=== PATIENT | female | born 1995 | race Caucasian/White ===

== ENCOUNTER 2017-09-05 12:27 | Emergency (ER) | payer BC ==
[~2017-09-05] VITALS: Ht 157.5 cm; Wt 97.5 kg
[2017-09-05] MEDS ORDERED: ZOLOFT25 MG PO (12:38)
[2017-09-05] MEDS ORDERED: CYCLOBENZAPRINE10 MG PO (12:38)
== END 2017-09-05 12:45 | disposition home or self-care (01) ==
LOC: ED 12:27
DX: Z00.8 Encounter for other general examination (principal)

== ENCOUNTER 2017-09-22 20:20 | Emergency (ER) | payer BC ==
[~2017-09-22] VITALS: Ht 157.5 cm; Wt 90.7 kg
[~2017-09-22 20:20] MED LIST: CYCLOBENZAPRINE10 MG PO; ZOLOFT25 MG PO
[2017-09-22] MEDS ORDERED: PROVENTIL HFA6.7 GM INH (20:59)
[2017-09-22] MEDS ORDERED: ZITHROMAX250 MG PO (20:59)
== END 2017-09-22 21:08 | disposition home or self-care (01) ==
LOC: ED 20:20
DX: J20.9 Acute bronchitis, unspecified (principal); F32.9 Major depressive disorder, single episode, unspecified; Z87.891 Personal history of nicotine dependence; Z88.8 Allergy status to other drugs, medicaments and biological substances; Z79.899 Other long term (current) drug therapy
CPT/HCPCS: 99283

== ENCOUNTER 2019-02-08 13:05 | Emergency (ER) | payer OTHER ==
[~2019-02-08] VITALS: Ht 157.5 cm; Wt 99.8 kg
[~2019-02-08 13:05] MED LIST changes: +IBUPROFEN600 MG PO; +ONDANSETRON ODT8 MG PO; +PROVENTIL HFA6.7 GM INH; +ZITHROMAX250 MG PO
[2019-02-08] MEDS ORDERED: CYCLOBENZAPRINE10 MG PO (13:16)
== END 2019-02-08 14:22 | disposition home or self-care (01) ==
LOC: ED 13:05
DX: S93.601A Unspecified sprain of right foot, initial encounter (principal); F17.200 Nicotine dependence, unspecified, uncomplicated; Z88.8 Allergy status to other drugs, medicaments and biological substances; Z91.09 Other allergy status, other than to drugs and biological substances
CPT/HCPCS: 73630; 99283-25

== ENCOUNTER 2019-02-20 22:44 | Emergency (ER) | payer OTHER ==
[~2019-02-20] VITALS: Ht 157.5 cm; Wt 99.8 kg
--- OUTSIDE RECORDS SUMMARY | 2019-02-20 22:46 | XMS ---
PreManage Notification: JUICE LUKE Security Television Technician Events No recent Security Events currently on file CRITERIA MET - [facility] - 2 Visits in 30 Days CARE PROVIDERS HANNAH LIN Physician Software Team Leader 09/05/2018-Current PHONE: [phone] Jeffry has no Care Guidelines for this patient. [place] VISIT COUNT (12 MO.) [address] TOTAL 5 NOTE: Visits indicate total known visits. ED/UCC VISIT TRACKING (12 MO.) 02/20/2019 22:44 [facility] [place] TYPE: Emergency COMPLAINT: - L HAND LAC 02/08/2019 13:06 [facility] [place] TYPE: Emergency COMPLAINT: - RIGHT FOOT PAIN DIAGNOSES: - Unspecified sprain of right foot, initial encounter - Pain in right foot - Nicotine dependence, unspecified, uncomplicated - Allergy status to other drugs, medicaments and biological substances status - Other allergy status, other than to drugs and biological substances 09/04/2018 13:34 [facility] [place] TYPE: Emergency COMPLAINT: - VOMITING/ABD PAIN DIAGNOSES: - Nicotine dependence, unspecified, uncomplicated - Other specified diseases and conditions complicating , childbirth and the puerperium - Other nonmedicinal substance allergy status - Vomiting of , unspecified - Allergy status to other drugs, medicaments and biological substances status - Smoking (tobacco) complicating , first trimester - Lower abdominal pain, unspecified 06/10/2018 14:19 [facility] [place] TYPE: Emergency COMPLAINT: - BILATERAL SHOULDER PAIN OJI [id number] 06/08/2018 18:02 [facility] [place] TYPE: Emergency COMPLAINT: - LEFT ARM INJURY DIAGNOSES: - Civilian activity done for income or pay - Exposure to other specified factors, initial encounter - Other specified places as the place of occurrence of the external cause - Strain of muscle, fascia and tendon of other parts of biceps, left arm, initial encounter - Pain in left shoulder - Nicotine dependence, unspecified, uncomplicated - Allergy status to other drugs, medicaments and biological substances status INPATIENT VISIT TRACKING (12 MO.) No inpatient visits to display in this time frame [id number]
[2019-02-20] MEDS ORDERED: NEURONTIN100 MG PO (22:58)
== END 2019-02-20 23:32 | disposition home or self-care (01) ==
LOC: ED 22:44
DX: S61.412A Laceration without foreign body of left hand, initial encounter (principal); W26.0XXA Contact with knife, initial encounter; F17.200 Nicotine dependence, unspecified, uncomplicated; Z88.8 Allergy status to other drugs, medicaments and biological substances; Z79.899 Other long term (current) drug therapy
CPT/HCPCS: 12001; 99282-25

== ENCOUNTER 2019-07-24 13:15 | Emergency (ER) | payer OTHER ==
[~2019-07-24] VITALS: Ht 160 cm; Wt 99.8 kg
[~2019-07-24 13:15] MED LIST changes: +NEURONTIN100 MG PO
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
[2019-07-24] MEDS ORDERED: NORCO 5-325 TA1 EACH PO (17:16)
== END 2019-07-24 17:30 | disposition home or self-care (01) ==
LOC: ED 13:15
PROC: 0HQ1XZZ Repair Face Skin, External Approach (ICD-10-PCS; principal; 2019-07-24)
DX: S01.81XA Laceration without foreign body of other part of head, initial encounter (principal); F17.200 Nicotine dependence, unspecified, uncomplicated; Z91.048 Other nonmedicinal substance allergy status; W26.8XXA Contact with other sharp object(s), not elsewhere classified, initial encounter
CPT/HCPCS: 12014; 99282-25; 99406